=== PATIENT | female | born 1960 | race Caucasian/White ===

== ENCOUNTER 2017-08-22 10:28 | Day surgery (SDC) | payer OTHER ==
[~2017-08-22] VITALS: Ht 157.5 cm; Wt 81.8 kg
[2017-08-22] VITALS (9 sets, daily range): BP systolic 120–142; BP diastolic 64–82; PULSE 54–73; TEMP 98.4
[2017-08-22] MEDS ORDERED: PRINIVIL2.5 MG PO (10:54)
[2017-08-22] MEDS ORDERED: COREG 3.123.125 MG/T PO (10:55)
[2017-08-22] MEDS ORDERED: LIPITOR 10MG10 MG PO (10:55)
[2017-08-22] MEDS ORDERED: PLAVIX 75MG TAB75 MG PO (10:56)
[2017-08-22] MEDS ORDERED: ASPIRIN E.C. 8181 MG PO (10:57)
[2017-08-22] MEDS ORDERED: MONOKET10 MG PO (10:57)
[2017-08-22] MEDS ORDERED: TYLENOL 500MG500 MG PO (10:58)
[2017-08-22 12:03] LABS: MEAN CELL VOLUME 92 fl (80.0-100.0); MEAN CORPUSCULAR HEMOGLOBIN 31 pg (27.0-31.0); MEAN CORPUSCULAR HGB CONC 34 g/dl (33.0-37.0); MEAN PLATELET VOLUME 11.6 fl (7.4-10.4); PLATELET COUNT 177 K/mm3 (130-400); RED BLOOD COUNT 3.83 M/mm3 (4.10-5.30); WHITE BLOOD COUNT 6.5 K/mm3 (4.8-10.8)
[2017-08-22 12:04] LABS: HEMATOCRIT 35.2 % (37.0-47.0)
[2017-08-22 12:06] LABS: INR 1.1 (0.8-3.0)
[2017-08-22 12:10] LABS: CALCIUM 9.1 mg/dL (8.4-10.2); CREATININE, serum 0.72 mg/dL (0.52-1.25)
[2017-08-22] MEDS ORDERED: RANEXA 500MG T500 MG PO (15:12)
== END 2017-08-22 16:00 | disposition home or self-care (01) ==
LOC: COL.CAR 10:28
PROVIDERS: Internal Medicine Cardiovascular Disease
DX: I25.10 Atherosclerotic heart disease of native coronary artery without angina pectoris (principal); I10 Essential (primary) hypertension; I25.2 Old myocardial infarction; Z79.01 Long term (current) use of anticoagulants; Z82.49 Family history of ischemic heart disease and other diseases of the circulatory system
CPT/HCPCS: C1760; C1769; C1887; C1894; J2250; J3010; Q9967

== ENCOUNTER 2018-01-12 13:51 | Outpatient (RCR) | payer SELFPAY ==
[~2018-01-12 13:51] MED LIST: ASPIRIN E.C. 8181 MG PO; COREG 3.123.125 MG/T PO; LIPITOR 10MG10 MG PO; MONOKET10 MG PO; PLAVIX 75MG TAB75 MG PO; PRINIVIL2.5 MG PO; RANEXA 500MG T500 MG PO; TYLENOL 500MG500 MG PO
== END 2018-01-15 15:01 | disposition home or self-care (01) ==
LOC: COL.CR 13:51
DX: Z48.812 Encounter for surgical aftercare following surgery on the circulatory system (principal); Z95.5 Presence of coronary angioplasty implant and graft

== ENCOUNTER → 2019-04-09 | Outpatient (CLI) | payer MEDICARE | LOC: MC.RAD 15:23 | DX: Z12.31 Encounter for screening mammogram for malignant neoplasm of breast (principal) ==

== ENCOUNTER → 2019-08-09 | Outpatient (CLI) | payer MEDICARE | LOC: COL.PUL 09:48 | DX: R06.02 Shortness of breath (principal) | CPT/HCPCS: J7674 ==

== ENCOUNTER 2020-11-11 06:49 | Day surgery (SDC) | payer MEDICARE ==
[2020-11-11] VITALS (9 sets, daily range): BP systolic 107–128; BP diastolic 65–89; PULSE 54–79
[2020-11-11 11:02] LABS: PROTHROMBIN TIME 11.6 SECONDS (9.7-12.8)
[2020-11-11 13:15] LABS: CALCIUM 9.1 mg/dL (8.4-10.2); CREATININE, serum 0.76 (0.52-1.25); POTASSIUM 4.8 mmol/L (3.4-5.0)
--- NOTE | 2020-11-11 13:16 | NUR ---
Air has been removed from TR band in 2ml increments without issue. Radial puncture site dressed with folded 2x2 and bandaid. IV DC'd with catheter intact. DC instructions reviewed and pt expresses understanding. She will be assisted out by wheelchair to sister's car.
[2020-11-11 13:39] LABS: HEMATOCRIT 38.6 % (37.0-47.0); HEMOGLOBIN 12.9 g/dl (12.5-16.0); MEAN CELL VOLUME 91 fl (80.0-100.0); MEAN CORPUSCULAR HEMOGLOBIN 30 pg (27.0-31.0); MEAN CORPUSCULAR HGB CONC 33 g/dl (33.0-37.0); MEAN PLATELET VOLUME 11.8 fl (7.4-10.4); PLATELET COUNT 256 K/mm3 (130-400); RED BLOOD COUNT 4.26 M/mm3 (4.10-5.30)
== END 2020-11-11 13:16 | disposition home or self-care (01) ==
LOC: COL.CAR 06:49
PROVIDERS: Internal Medicine Cardiovascular Disease
DX: I25.110 Atherosclerotic heart disease of native coronary artery with unstable angina pectoris (principal); R94.39 Abnormal result of other cardiovascular function study; I10 Essential (primary) hypertension; G47.33 Obstructive sleep apnea (adult) (pediatric)
CPT/HCPCS: C1769; J1644; J2250; J3010; Q9967